=== PATIENT | male | born 1935 | race Hispanic/Latino ===

== ENCOUNTER 2016-07-13 09:34 | Emergency (ER) | payer OTHER, MEDICARE ==
[~2016-07-13] VITALS: Ht 177.8 cm; Wt 95.3 kg
[2016-07-13] MEDS ORDERED: LYRICA100 M1 PO (10:20)
[2016-07-13] MEDS ORDERED: JANUVIA100 M1 PO (10:20)
[2016-07-13] MEDS ORDERED: FENOFIBRIC ACI135 M1 PO (10:21)
[2016-07-13] MEDS ORDERED: METOPROLOL SUCC25 M1 PO (10:22)
[2016-07-13] MEDS ORDERED: FUROSEMIDE40 M1 PO (10:22)
[2016-07-13] MEDS ORDERED: AMITIZA8 MC1 PO (10:23)
[2016-07-13] MEDS ORDERED: METFORMIN HCL500 M3 PO (10:23)
[2016-07-13] MEDS ORDERED: LEVETIRACETAM1000 M1 PO (10:24)
[2016-07-13] MEDS ORDERED: OXYCONTIN10 M1 PO (10:25)
[2016-07-13] MEDS ORDERED: DULOXETINE HCL30 MG PO (10:25)
[2016-07-13] MEDS ORDERED: ROBAXIN-750750 M1 PO (10:27)
[2016-07-13] MEDS ORDERED: PRAVASTATIN SOD10 M2 PO (10:28)
[2016-07-13] MEDS ORDERED: JALYN 0.5-0.41 EACH PO (10:28)
[2016-07-13] MEDS ORDERED: HYDROXYZINE HCL25 M2 PO (10:29)
[2016-07-13] MEDS ORDERED: LORAZEPAM2 M1 PO (10:30)
[2016-07-13] MEDS ORDERED: TEMAZEPAM15 M1 PO (10:31)
[2016-07-13] MEDS ORDERED: XARELTO20 M2 PO (10:32)
[2016-07-13] MEDS ORDERED: LYRICA200 M1 PO (10:32)
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
--- NOTE | 2016-07-13 11:46 | CT SCAN REPORT ---
EXAMINATION: CT LUMBAR SPINE WITHOUT CONTRAST CLINICAL INFORMATION: Fall. Status post laminectomy. COMPARISON: None TECHNIQUE: Helical noncontrast CT images were obtained through the lumbar spine and 1.25 mm and 2.5 mm axial reconstructions were reviewed along with sagittal and coronal MPRs. DLP: 1239 mGy-cm FINDINGS: There is a transverse fracture through the anterior aspect of the L1 vertebral body with depression of the superior endplate and 25% loss of vertebral body height. No significant retropulsion at the posterior cortex. No significant involvement of the posterior or middle columns. No additional fractures are identified. Vertebral body heights are otherwise within normal limits. There is mild right convex lumbar scoliosis centered at L4. [id number] degenerative disc disease at L4-L5 and L5-S1 is characterized by loss of intervertebral disc height with endplate osteophytes, vacuum disc phenomenon, and endplate sclerosis. This is most notable along the left aspect of the L4-L5 level and the right aspect of L5-S1. More mild degenerative disc disease is present in the remainder of the lumbar spine with multilevel disc bulges. There is moderate facet arthropathy at L4-L5 and L5-S1. An extrarenal pelvis is present at the right kidney. A 1.5 cm hypodensity at the left kidney posteriorly likely corresponds to a renal cyst but is not fully characterized. There is a 2.8 cm low-density (3 Hounsfield units) lesion in the right adrenal gland, most compatible with a lipid rich adrenal adenoma (benign). Calcific atherosclerosis is present in the abdominal aorta and iliac arteries. SPINAL LEVELS: T12-L1: No central canal and neural foraminal stenosis. L1-L2: No central canal or neural foraminal stenosis. L2-L3: Mild disc bulge. Foraminal components narrow the inferior aspects of the foramina, right greater than left. No significant stenosis. L3-L4: A generalized disc bulge combines with ligamentum flavum thickening to produce mild central canal narrowing. The foraminal components of the disc bulge narrow the inferior aspect of the foramina without significant mass effect upon the exiting L3 nerve roots. L4-L5: Postsurgical changes of prior laminectomy are noted. No significant central canal stenosis. There is moderate mass effect upon the left exiting L4 nerve roots in the foramen due to facet osteophytes and the foraminal disc osteophyte complex. There is more mild mass effect upon the right L4 nerve root. Punctate foci of gas in the foraminal regions bilaterally are presumably postoperative or due to gas within portions of the disc. L5-S1: Facet osteophytes and foraminal disc osteophyte complexes produce [id number] right and moderate left neural foraminal narrowing. No significant central canal stenosis. IMPRESSION: 1. Acute compression fracture of the superior endplate at L1 with 25% loss of vertebral body height. No compromise of the central canal or retropulsion of the posterior cortex. 2. Multilevel degenerative disc disease and facet arthropathy as detailed above. Uncovertebral osteophytes and foraminal disc osteophytes produce neural foraminal stenoses at L4-L5 and L5-S1. 3. Postsurgical changes of laminectomy at L4-L5. Punctate foci of gas at the L4-L5 foramina likely correspond to gas/vacuum phenomenon within portions of the disc. 4. A benign lipid rich adrenal adenoma on the right 5. A 1.5 cm hypodense lesion in the left kidney, incompletely characterized on this study. Consider followup renal ultrasound on a nonemergent basis if not previously evaluated.
[2016-07-13 12:08] VITALS: BP 115/70
== END 2016-07-13 13:25 ==
LOC: ERH 09:34
DX: S32.010A Wedge compression fracture of first lumbar vertebra, initial encounter for closed fracture (principal); W19.XXXA Unspecified fall, initial encounter; Y93.E9 Activity, other interior property and clothing maintenance; Y92.9 Unspecified place or not applicable
CPT/HCPCS: 96372